=== PATIENT | male | born 1990 | race Caucasian/White ===

== ENCOUNTER 2019-06-04 09:01 | Day surgery (SDC) | payer MEDICAID ==
[~2019-06-04] VITALS: Ht 190.5 cm; Wt 88.5 kg
[2019-06-04 09:53] VITALS: BP 125/50; Ht 190.5 cm; Wt 88.5 kg
[2019-06-04] MEDS ORDERED: PERCOCET 5-3251 TAB PO (14:32)
[2019-06-04] MEDS ORDERED: TORADOL10 MG PO (14:33)
--- NOTE | 2019-06-06 12:54 | OP ---
PATIENT NAME: ROGELIO GRANADO MEDICAL RECORD: [id number] :88 LOCATION:[facility] ADMISSION DATE: SURGEON: MAHAD DOHERTY DO DATE OF OPERATION: 06/04/2019 PROCEDURE PERFORMED: Left knee arthroscopy with partial medial and partial lateral meniscectomies and cartilage biopsy. PREOPERATIVE DIAGNOSES: Left knee anterior cruciate ligament tear, grade IV cartilage lesion and chondromalacia, measuring size 20 x 15 x 3 mm, and medial and lateral meniscal tears. The chondromalacia grade IV is on the medial femoral condyle. POSTOPERATIVE DIAGNOSES: Left knee anterior cruciate ligament tear, grade IV cartilage lesion and chondromalacia, measuring size 20 x 15 x 3 mm, and medial and lateral meniscal tears. The chondromalacia grade IV is on the medial femoral condyle. INDICATIONS: Mr. Granado is a 28-year-old male who was injured while hiking and he twisted his knee. He said he felt to go out and would not. He said he could hardly move it as it has swollen up linda much and he continued to have anterior medial knee pain, just over the medial femoral condyle. The patient tried all nonoperative attempts at tolerating this including bracing and activity modification. He ended up getting an MRI. He also did not respond well to physical therapy and he had ongoing pain. MRI was done that showed the chondral defect as well as complete ACL tear, medial and lateral meniscal tears. Having a long discussion with him and knowing that the chondral defect was in the weightbearing portion, and as he had failed conservative treatment. I told him that we would even want to look at the size directly, MRI was measured by 12 x 14 mm and get good measurements and likely do JANE procedure in combination with ACL reconstruction, but we needed 6 weeks to grow the cartilage, I would also evaluate the meniscus at that time. We went in there and trimmed back. We needed to trim back and possibly repair if anything was repairable. He was willing to go through that and knowing that he would have a larger procedure done in 6 weeks once the cartilage had been grown. He was tired of dealing with the pain and it locking, catching and popping on him and wanted something done surgically. I told him this was our best option. He was aware of that and signed a consent. SURGEON: Mahad Doherty DO DESCRIPTION OF PROCEDURE: The patient received a block by anesthesia in preoperative area. He was taken to the operative suite, laid in supine position, given general anesthetic and given 2 grams Ancef. The left lower extremity was then prepped and draped in sterile fashion. A timeout was performed and everyone was in agreement with the correct site, side, patient and procedure. We began by starting the knee scope and established the lateral portal with an 11-blade scalpel and then entered the trocar into the knee. We then went to the suprapatellar pouch. There were some loose bodies floating around in the area of cartilage, same as the medial and lateral gutters and then went into the medial compartment and flexed the knee down and the large osteochondral defect was seen. The medial portal was then established with an 18-gauge spinal needle and 11-blade scalpel. Probe was then brought in and measured the defect to the size of 20 mm x 15 x 3 mm deep, all encompassing the cartilage that was flaking off probably can be more like 30 x 30 mm on the OPERATIVE REPORT [id number] ROGELIO GRANADO weightbearing portion of medial femoral condyle. I then evaluated the medial meniscus, there was a complex tear in the medial meniscus having a split right through the middle portion of the middle horn of the medial meniscus. The posterior horn was also very severely complex torn, brought in a biter to bite out where I could and trimmed back to a stable point. Thinking I could readdress the medial meniscus if I could with a different type fixation on the ACL repaired portion next time after seeing the large chondral defect. The notch was then viewed, the ACL was absent and torn off of the femoral condyle. The medial compartment was then entered and as I figured-four the knee, a large piece of cartilage seen back at the lateral aspect. We then also saw a small tear in the lateral meniscus, a parrot beak type if you will, very small and I trimmed this back with a biter and then with a shaver. I then shaved out the free cartilage pieces that were floating around in the lateral compartment. I then went and brought a curette in and took the cartilage biopsy from the notch on the lateral side due to the fact that we will be doing a notchplasty in the future for the ACL and got good biopsies from that and these were taken and put in the container to be shipped off to the lab. Once that was complete, I looked around the knee for more cartilage pieces and none were seen. I then turned the suction on and the water off. Excess fluid removed from the knee and the knee was then closed by Angel Nguyen, certified surgical first aid teacher with 4-0 Monocryl on the portal sites in an inverted interrupted fashion and then dressed with Adaptic, 4 x 4s, ABD, Webril, Main wrap and NADER hose stockings in place and knee immobilizer, awakened and taken to recovery in stable condition. BLOOD LOSS: Minimal. COMPLICATIONS: None. TRANSINT:[id number] Voice Confirmation ID: [id number] DOCUMENT ID: [id number] MAHAD DOHERTY DO at 1254 CC: [id number] DICTATION DATE: 06/04/19 1445 [employer] WORKER: 06/04/19 1721 [facility] 06/04/19 [id number] [place] [address]
== END 2019-06-04 16:00 | disposition home or self-care (01) ==
LOC: D.OPS 09:01 → D.PAN 11:30 → D.OPS 16:00
PROVIDERS: ATTEND Orthopaedic Surgery
DX: S83.512A Sprain of anterior cruciate ligament of left knee, initial encounter (principal); M94.262 Chondromalacia, left knee; S83.282A Other tear of lateral meniscus, current injury, left knee, initial encounter; S83.242A Other tear of medial meniscus, current injury, left knee, initial encounter; X58.XXXA Exposure to other specified factors, initial encounter

== ENCOUNTER 2019-10-15 07:46 | Day surgery (SDC) | payer MEDICAID ==
[~2019-10-15] VITALS: Ht 190.5 cm; Wt 88.5 kg
[~2019-10-15 07:46] MED LIST: PERCOCET 5-3251 TAB PO; TORADOL10 MG PO
[2019-10-15 08:34] VITALS: BP 124/74; Ht 190.5 cm; Wt 88.5 kg
--- NOTE | 2019-10-18 09:02 | OP ---
PATIENT NAME: ROGELIO GRANADO MEDICAL RECORD: [id number] :88 LOCATION:[facility] ADMISSION DATE: SURGEON: MAHAD DOHERTY DO DATE OF OPERATION: 10/15/2019 PROCEDURE PERFORMED: Left knee ACL reconstruction with quad tendon autograft, medial meniscal repair, JANE procedure of the medial femoral condyle, and left knee arthroscopy. INDICATIONS: Mr. Granado is a 29-year-old male who has had an ACL injury for quite some time. He also had a large cartilage defect noted on the MRI. This was done several months ago as well as meniscal tears. I told him we could do a JANE procedure and he could grow some cartilage and we could replace with that, he was okay with doing that and so he underwent the other knee scope and I had got a cartilage biopsy and debrided the ACL. He has been physically getting into shape for this procedure since then and he was informed of the risks including infection, bleeding, damage to nerve, vessel, need for further surgery, failure of implants, continued pain, loss of range of motion of the knee and blood clots, bleeding and even . He signed the consent. SURGEON: Mahad Doherty DO DESCRIPTION OF PROCEDURE: The patient received block by anesthesia in the preoperative area. He was taken to the operative suite, laid in supine position, given general anesthetic, and LMA was placed. The left lower extremity was then prepped and draped in sterile fashion. Timeout was performed. Everyone was in agreement with the correct site, side, patient and procedure. I then began first by harvesting the quad tendon graft. I then made an incision over the anterior knee. Made careful dissection down to the quad tendon. Took central 1 cm x 7 mm approximately 110 mm in length of the graft. This was then sutured through any holes that I put in the suprapatellar pouch. I then started the knee scope and established a lateral portal with an 11-blade scalpel. Trocar was then entered into the joint. Inspected the suprapatellar pouch. Nothing was seen in that and the medial and lateral gutters. I then went to the medial compartment and established a medial portal with an 18-gauge spinal needle and 11-blade scalpel, brought the trocar in and then noticed where the cartilage had been missing from before. There was a 15 x 20 mm defect that was noted in the weightbearing portion of his medial femoral condyle. I then opened up the knee with a valgus stress and saw the intrasubstance tear of the medial meniscus. I then switched portals, put the camera in the medial portal and through the lateral portal, used Novostitch and put 3 sutures in the meniscus and repaired it, cutting the sutures each time. Then addressed the ACL. Angel Nguyen, certified surgical first grade teacher, is the one that prepared the ACL graft on the back table with the assistance of Devi Wolf, certified assembler surgical garment. I then made the femoral tunnel and then passed nitinol wire through posterolateral portal and then the tibial tunnel and then passed the graft through both tunnels and toggled the graft up into the femur. This was done by Devi Wolf, certified surgical first grade teacher, held tension, the graft was viewed through the medial portal and it was seen to go up into the femur, was very well fixed. I then addressed the tibial side and used TunneLoc 9 mm tibial fixation, held tension and then cycled the knee twice 20 times each and held tension on the 2 strands of the graft and then malleted up the TunneLoc into position to where it was below the surface of the tibia. I then did an anterior drawer test and was very taut and had a good and strong endpoint as well as Irineo's. Irineo's was negative. I then toggled the femur side again OPERATIVE REPORT [id number] ROGELIO GRANADO to get any creak that was left in there and then cut the sutures in both sides and the remaining graft was stuck on the tibial side. I then extended the incision on the central portion or the anterior portion of the knee and opened up the knee itself through a medial arthrotomy and identified the 15 x 20 grade III chondral defect on the medial femoral condyle. We used the punch to punch it out to get good smooth borders. Also used a curette and then cut open the same size of the grown cartilage that had been previously biopsied and grown at the [facility] and then used a glue to have a nice base and then put the JANE in the defect and place a groove over it. We waited for 5 minutes. In the inferior portion, had a small flap, I that did not get on it and put more glue on that and waited 2 minutes. Prior to doing that, I put a Regeneten implant on the quad tendon site where I harvested the tendon, a large patch and put the soft tissue gigi and sutured it into place, I cut it in half and put it length-ways covering the most quad tendon defect as possible. The tourniquet was inflated prior to starting this procedure after exsanguinating the left lower extremity and was up 407 minutes. The tourniquet was let down prior to putting in the JANE patch. I then closed the poke hole on the lateral side from the femoral tunnel with 4-0 Monocryl in inverted interrupted fashion as well as the lateral portal for the knee scope with a 4-0 Monocryl in inverted interrupted fashion. Devi Wolf, certified assembler surgical garment, closed the capsule with #1 Vicryl pops in a mitfan-or-amrzk fashion and then the skin with 2-0 Vicryl in inverted interrupted fashion and ZipLine placed on it and a 4-0 Monocryl over the tibial tunnel incision in an inverted interrupted fashion and then ZipLine placed on it and the medial portals closed with 4-0 Monocryl in inverted interrupted fashion. He was then dressed with Adaptic, 4 x 4s, ABD, Webril, Main wrap and placed in a NADER hose and a knee immobilizer locked in extension. He was then awakened and taken to recovery in stable condition. BLOOD LOSS: Approximately 15 mL. COMPLICATIONS: None. TRANSINT:[id number] Voice Confirmation ID: [id number] DOCUMENT ID: [id number] MAHAD DOHERTY DO at 0902 CC: [id number] DICTATION DATE: 10/15/19 1644 TIN FLIPPER: 10/16/19 0338 [facility] 10/15/19 [id number] [place] [id number]
== END 2019-10-15 16:35 | disposition home or self-care (01) ==
LOC: D.OPS 07:46
PROVIDERS: ATTEND Orthopaedic Surgery
DX: S83.512D Sprain of anterior cruciate ligament of left knee, subsequent encounter (principal); X58.XXXD Exposure to other specified factors, subsequent encounter; M94.262 Chondromalacia, left knee; M25.562 Pain in left knee